=== PATIENT | male | born 1985 | race Two or more races ===

== ENCOUNTER 2019-11-23 18:06 | Observation (INO) | payer OTHER ==
[2019-11-23 20:06] LABS: ABS Basophils 0.1 10^3/ul (0-0.2); ABS Eosinophils 0.1 10^3/ul (0-0.6); ABS Lymphocytes 1.1 10^3/ul (1.0-4.8); ABS Monocytes 0.5 10^3/ul (0-0.8); ABS Neutrophils 7.7 10^3/ul (1.5-7.7); Eosinophil % 1.2 %; Hematocrit 45 % (42-52); Hemoglobin 15.2 g/dL (14.0-18.0); Lymphocyte % 11.9 %; Mean Corpuscular HGB Conc 34 g/dL (31-36); Mean Corpuscular Hemoglobin 29 pg (27-31); Mean Corpuscular Volume 86 fL (80-94); Mean Platelet Volume 7.6 fL (7.4-10.4); Platelet Count 201 10^3/uL (150-450); Red Cell Distribution Width 14 % (10-15); White Blood Count 9.6 10^3/uL (3.5-10.8)
--- NOTE | 2019-11-23 20:11 | ED ---
Abdominal Pain/Male - HPI Summary HPI Summary: The patient is a 34 y/o male presenting to [facility] with a chief complaint of abdominal pain onset two nights ago. He reports that the pain began in the umbilical/suprapubic region but has moved to the RLQ. He has developed a decreased appetite and constipation, but he denies any fevers, nausea, vomiting , or diarrhea. He also denies any dysuria or hematuria. His pain is currently rated 3/10 in severity. He has not used any medications PRIMARY CARE MD for pain. He notes he was recently in [facility]. No abdominal history. Former smoker, weekly EtOH, no substance use. Medications reviewed. Allergies noted. - History of Current Complaint Chief Complaint: EDAbdPain Stated Complaint: ABD PAIN/CONSTIPATED PER PT Time Seen by Provider: 11/23/19 19:50 Hx Obtained From: Patient Onset/Duration: Lasting Days - two, Still Present Timing: Constant Severity Initially: Mild Severity Currently: Moderate Pain Intensity: 3 Pain Scale Used: 0-10 Numeric Location: Discrete At: RLQ - moved from suprapubic/umbilical region Radiates: No Character: Sharp Aggravating Factor(s): Food Alleviating Factor(s): Nothing Associated Signs And Symptoms: Positive: Constipation, Decreased Appetite. Negative: Fever, Urinary Symptoms, Nausea, Vomiting, Diarrhea - Allergies/Home Medications Allergies/Adverse Reactions: Allergies Allergy/AdvReac Type Severity Reaction Status Date / Time No Known Allergies Allergy Verified 11/23/19 18:15 Home Medications: Home Medications NK [No Home Medications Reported] 11/23/19 [History Confirmed 11/23/19] PMH/Surg Hx/FS Hx/Imm Hx Endocrine/Hematology History: Denies: Hx Diabetes Cardiovascular History: Denies: Hx Hypertension Respiratory History: Denies: Hx Chronic Obstructive Pulmonary Disease (COPD) - Surgical History Surgical History: Yes Surgery Procedure, Year, and Place: wisdom teeth, Lasik, multiple surgeries as baby due to being premature Infectious Disease History: No Infectious Disease History: Reports: Traveled Outside the [place] in Last 30 Days - Family History Known Family History: Positive: Other - cancer, hepatitis - Social History Alcohol Use: Weekly Hx Substance Use: No Substance Use Type: Reports: None Hx Tobacco Use: Yes Smoking Status (MU): Former Smoker Review of Systems Negative: Fever Positive: Abdominal Pain - RLQ, Other - constipation, decreased appetite. Negative: Vomiting, Diarrhea, Nausea Negative: dysuria, hematuria All Other Systems Reviewed And Are Negative: Yes Physical Exam - Summary Physical Exam Summary: Constitutional: Well-developed, Well-nourished, Alert. (-) Distressed Skin: Warm, Dry HENT: Normocephalic; Atraumatic Eyes: Conjunctiva normal Neck: Musculoskeletal ROM normal neck. (-) JVD, (-) Stridor, (-) Nuchal rigidity Cardio: Rhythm regular, rate tachycardic, Heart sounds normal; Intact distal pulses; Radial pulses are 2+ and symmetric. (-) Murmur Pulmonary/Chest wall: Effort normal. (-) Respiratory distress, (-) Wheezes, (-) Rales Abd: Soft, (+) RLQ tenderness at McBurney's pt, (-) Distension, (+) Voluntary guarding, (-) Rebound Musculoskeletal: (-) Edema Lymph: (-) Cervical adenopathy Neuro: Alert, Oriented x3 Psych: Mood and affect Normal Triage Information Reviewed: Yes Vital Signs On Initial Exam: Initial Vitals Temp Pulse Resp BP Pulse Ox 98.7 F 105 18 143/92 96 11/23/19 18:12 11/23/19 18:12 11/23/19 18:12 11/23/19 18:12 11/23/19 18:12 Vital Signs Reviewed: Yes Procedures - Sedation Patient Received Moderate/Deep Sedation with Procedure: No Diagnostics - Vital Signs Vital Signs Temp Pulse Resp BP Pulse Ox 11/23/19 18:12 98.7 F 105 18 143/92 96 - Laboratory Result Diagrams: 11/23/19 19:55 11/23/19 19:55 Lab Statement: Any lab studies that have been ordered have been reviewed, and results considered in the medical decision making process. Abdominal Pain Male Course/Dx - Course Course Of Treatment: 34 y/o male w no sig PMH p/w RLQ pain. - VS mild tachycardia, afebrile. +RLQ tenderness on exam, voluntary guarding, no rebound. CRP elevated, no leukocytosis. Denies symptoms. Concern for appendicitis, will check CT. Given IVF - Diagnoses Provider Diagnoses: RLQ abdominal pain Discharge ED - Sign-Out/Discharge Documenting (check all that apply): Sign-Out Patient Signing out patient TO: Gigi Nash - Patient is a sign-out to Dr. Gigi Nash MD, at change of shift at 2200 on 11/23/19, pending Abd/Pel CT and disposition. - Discharge Plan Condition: Stable Referrals: No Primary Care Phys,NOPCP [Primary Care Provider] - - Billing Disposition and Condition Condition: STABLE - Attestation Statements Document Initiated by Scribe: Yes Documenting Scribe: Ashlee Duncan Provider For Whom Scribe is Documenting (Include Credential): Dr. Kyler Delgado MD Scribe Attestation: Ashlee Loera, scribed for Dr. Kyler Delgado MD on 11/23/19 at 2238. Scribe Documentation Reviewed: Yes Provider Attestation: The documentation as recorded by the Ashlee bauer accurately reflects the service I personally performed and the decisions made by me, Dr. Kyler Delgado MD Status of Scribe Document: Viewed
[2019-11-23 20:19] LABS: Albumin 4.4 g/dL (3.2-5.2); Albumin/Globulin Ratio 1.4 (1-3); BUN/Creatinine Ratio 15.5 (8-20); C Reactive Protein 95.89 mg/L (<8.01); Calcium 9.2 mg/dL (8.6-10.3); EGFR Non-African American 87.6 (>60); Globulin 3.2 g/dL (2-4); Potassium 3.5 mmol/L (3.5-5.0); Total Bilirubin 0.8 mg/dL (0.2-1.0); Total Protein 7.6 g/dL (6.4-8.9)
[2019-11-23] MEDS ORDERED: Iohexol 300* (CONTRAST) 10 ML SDV IV ONE (20:31)
[2019-11-23 21:24] LABS: Urine Appearance Clear; Urine Bilirubin Negative (Negative); Urine Blood Negative (Negative); Urine Color Straw; Urine Glucose Negative (Negative); Urine Ketones Trace (Negative); Urine Nitrite Negative (Negative); Urine Protein Negative (Negative); Urine Specific Gravity 1.006 (1.010-1.030); Urine Urobilinogen Negative (Negative)
[2019-11-23] MEDS ORDERED: NS 0.9% 1000 ML** 1,000 ML IV ONE (21:53)
--- NOTE | 2019-11-23 23:07 | ED ---
Progress - Progress Note Progress Note: Pt is a signout from Dr. Delgado at 2200 on 11/23/[address] a/p results. Spoke with Dr. Rodriguez at [address] results who will be giving admission orders to JAMARCUS Lee, and either him or his colleague will see the pt in the morning. - Results/Orders Results/Orders: CT a/p shows: Appendicitis. ED physician has reviewed this report. Course/Dx - Course Course Of Treatment: Pt is a signout from Dr. Delgado at 2200 on 11/23/[address] a/p results. CT a/p shows: Appendicitis. Spoke with Dr. Rodriguez at [address] results who will be giving admission orders to JAMARCUS Lee, and either him or his colleague will see the pt in the morning. Dx appendicitis. - Diagnoses Provider Diagnoses: Appendicitis Discharge ED - Sign-Out/Discharge Documenting (check all that apply): Patient Departure, Receiving Sign-Out Receiving patient FROM: Kyler Delgado - Discharge Plan Condition: Stable Disposition: ADMITTED TO [facility] - Billing Disposition and Condition Condition: STABLE Disposition: Admitted to [facility] - Attestation Statements Document Initiated by Ethan: Yes Documenting Scribe: Keri Constantino Provider For Whom Ethan is Documenting (Include Credential): Gigi Nash MD. Scribe Attestation: Keri Loera, corazoned for Gigi Nash MD. on 11/24/19 at 1907. Scribe Documentation Reviewed: Yes Provider Attestation: The documentation as recorded by the Keri bauer accurately reflects the service I personally performed and the decisions made by , Gigi Nash MD. Status of Scribe Document: Viewed
[2019-11-24] MEDS ORDERED: Morphine INJ* 4 MG/ML 1 ML SYRINGE (NEW SYRINGE VERSION) IV PRN (02:44)
[2019-11-24] MEDS ORDERED: Ondansetron INJ* 2 MG/ML VIAL IV PRN ×2 (02:44→16:01)
[2019-11-24] MEDS ORDERED: NS 0.9% 1000 ML** 1,000 ML IV SCH (02:45)
[2019-11-24] MEDS: ZOSYN 3.375 GM Q6H - Intermittant 30 min Infusion IVPB SCH ×4 (03:09→09:48)
--- NOTE | 2019-11-24 09:42 | CONSULT ---
Consult Consult: CC: ABD pain x 3 days HPI: 34 yo m presents for ABD pain starting thursday night, which began as a periumbilical discomfort and progressively worsened to RLQ pain. Confirms decreased appetite; last meal yesterday (11/23) lunch. Last BM Thursday, none since. Is passing flatus. Denies nausea, vomiting, fever, chills, SOB, chest pain. Meds: Claritin Allergies: NKDA Social history: No etoh or tobacco use. Family history: Noncontributory. PMH: Environmental allergies. No history of clots or bleeding problems. Surgical history: Procedure for undescended testicle when child, no complications or issues with anesthesia. ROS: 12 point review of systems negative except as otherwise stated above. Imaging: Consistent with appendicitis PEX: General: Alert, in NAD or discomfort Integumentary: No rashes or lesions HEENT: Oropharynx clear, nares patent Heart: RRR, no MRG Lungs: CTAB, no WRR ABD: BS present. Soft, nondistended. Tender in RLQ. No palpable hernias. Extremities: Calves nontender. Distal pulses intact bilaterally. No edema. Assessment and plan: 34 yo M with ABD pain likely acute appendicitis. Will likely be scheduled in today for a laparoscopic or robotic appendectomy. NPO.
[2019-11-24] MEDS ORDERED: Buffered Lidocaine 1% SYRIN* 1 ML/SYRINGE INTRADERM ONE (10:42)
[2019-11-24] MEDS ORDERED: Lactated Ringers 1000 ML Bag* 1,000 ML IV SCH (11:00)
[2019-11-24] MEDS ORDERED: Bupivacaine 0.5%* 50 ML MDV VIAL ONE (12:41)
[2019-11-24] MEDS ORDERED: ceFAZolin 2 GM PREMIX in ORs 2 GM/50 ML BAG ONE (14:15)
[2019-11-24] MEDS ORDERED: fentaNYL* 50 MCG/ML 5 ML VIAL (250 MCG VIAL) ONE (14:23)
[2019-11-24] MEDS ORDERED: Dexamethasone IV* 4 MG/ML 1 ML (4 MG) ONE (14:23)
[2019-11-24] MEDS ORDERED: Rocuronium* 10 MG/ML VIAL ONE (14:23)
[2019-11-24] MEDS ORDERED: Ondansetron INJ* 2 MG/ML VIAL ONE (14:23)
[2019-11-24] MEDS ORDERED: Ketorolac INJ* 30 MG/ML 1 ML VIAL ONE (14:23)
[2019-11-24] MEDS ORDERED: Lidocaine 2% MPF* 2 ML VIAL ONE (14:23)
[2019-11-24] MEDS ORDERED: Propofol* 10 MG/ML 20 ML BTL ONE (14:23)
[2019-11-24] MEDS ORDERED: Midazolam* 1 MG/ML 5 ML VIAL (5 MG) ONE (14:23)
[2019-11-24] MEDS ORDERED: Sugammadex * 500 MG/5 ML VIAL IV PUSH ONE (15:19)
[2019-11-24] MEDS ORDERED: Naloxone* 0.4 MG/ML 1 ML VIAL IV PRN (16:01)
[2019-11-24] MEDS ORDERED: fentaNYL* 50 MCG/ML 2 ML VIAL (100 MCG VIAL) IV PRN (16:01)
[2019-11-24] MEDS ORDERED: Ibuprofen TAB* 400 MG ONE (17:40)
[2019-11-24 18:08] VITALS: BP 131/78
--- NOTE | 2019-11-24 21:15 | OP ---
DATE OF OPERATION: 11/24/19 - ROOM #331 DATE OF : 81 SURGEON: Rob Castaneda MD LINEN CLERK: MORGAN Abebe PRE-OP DIAGNOSIS: Appendicitis. POST-OP DIAGNOSIS: Appendicitis. OPERATIVE PROCEDURE: Robotic appendectomy. INDICATIONS FOR PROCEDURE: Appendicitis. Risks including, but not limited to bleeding, infection, injury to intraabdominal contents including the bowel were explained to the patient, who seemed to understand and agreed to the procedure and all questions were answered. DESCRIPTION OF PROCEDURE: The patient was taken to the operating room and placed supine. Preoperative antibiotics were given. After the successful induction of general endotracheal anesthesia, the abdomen was prepped and draped in a sterile fashion. A 5 mm trocar was placed in the subxiphoid position under direct visualization of the camera using a bladeless Optiview trocar. Pneumoperitoneum was achieved to 15 mmHg. Camera was placed in the abdomen and the abdomen was scanned. There was no obvious injury from trocar placement. Two 8 mm robotic trocars were placed in line heading down towards the left lower quadrant hand width apart under direct visualization of the camera. The 5-mm trocar was replaced with a 12 mm trocar. The patient was placed in a slight Trendelenburg position, rotated towards his left and the robot was brought in and docked. Appendix was gently mobilized. The base was isolated and divided with a 45 mm robotic stapler with a blue load. The mesoappendix was cauterized with the fenestrated bipolar and then divided with a vascular white load of the 45 mm stapler. The appendix was placed into an Endobag and removed from the umbilical port site. The right lower quadrant was inspected. Hemostasis was intact. The jamila were in good position. No injuries were noted. The omentum was placed over the right lower quadrant/ cecum. The trocars were removed as pneumoperitoneum was released from the abdomen. The patient tolerated the procedure well. The 12 mm port fascia was closed with a 0 Vicryl suture. The skin was closed with 3-0 Monocryl at each site and glue was applied to the skin. The patient tolerated the procedure well. He was extubated and taken to Recovery in stable condition. [id number]/[facility] #: [id number] [facility]AMPTON HOSPITALNena
--- NOTE | 2019-11-29 10:08 | DS ---
Admit date: 11/23/2019 Discharge date: 11/24/2019 Admit diagnosis: Appendicitis Discharge Diagnosis: Appendicitis, S/P appendectomy Discharge condition: Stable PEX: General: Alert, in NAD or Discomfort HEENT: Oropharynx clear Heart: RRR Lungs: CTAB, no WRR ABD: Soft, nondistended. Minimal BS present. Incisions C/D/I, no erythema or warmth. Extremities: Calves nontender. Distal pulses intact BL. Labs: Unremarkable Hospital Course: He presented to the ER on 11/23 with ABD pain, diagnosed with appendicitis. Was seen and admitted to surgical service 11/24/2019, on which day he was taken for a robotic appendectomy with Dr. Castaneda. He tolerated this procedure well and was discharged afterwards home in stable condition. Instructions given to pt regarding proper diet, meds, activity, and post op follow up. All questions answered.
== END 2019-11-24 20:18 | disposition home or self-care (01) ==
LOC: ED 18:06 → SSU 23:44 → INTOOBSV 23:44
PROVIDERS: ADMIT Surgery; ATTEND Surgery
DX: K37 Unspecified appendicitis (principal); K59.00 Constipation, unspecified; Z87.891 Personal history of nicotine dependence
CPT/HCPCS: 36415; 74177; 80053; 81003; 83605; 83690; 85025; 86140; 88304; 99284; A9270-GY; G0378; J0690; J1100; J1885; J2250; J2405; J2543; J2704; J3010; J3490; Q9967